=== PATIENT | female | born 1970 | race Caucasian/White ===

== ENCOUNTER 2017-01-23 07:33 | Emergency (ER) | payer BC ==
[~2017-01-23] VITALS: Ht 162.6 cm; Wt 62.0 kg
[~2017-01-23 07:33] MED LIST: IBUP-1542 PO; TRAM50TA2 PO
[2017-01-23 07:37] VITALS: Ht 162.6 cm; Wt 62.0 kg
[2017-01-23] MEDS ORDERED: IBUPROFEN 600 MG TAB PO ONE (08:00)
--- NOTE | 2017-01-23 08:58 | ERD ---
ER Documentation Chief Complaint Chief Complaint LT 4TH FINGER PAIN AND SWELLING S/P RING GETTING STUCK WHEN FALLING HPI This is a 38-year-old female presenting to emergency department for injury and pain to left fourth digit. Patient states while at work she was reaching overhead to ceiling when her ring got caught and she suffered abrasion to left ring finger. Patient now states she is having swelling and unable to take her ring off. Patient is having some numbness and tingling to left fourth digit. Patient is able to move all fingers on left hand. ROS All systems reviewed and are negative except as per history of present illness. Medications Home Meds Active Scripts Tramadol HCl (Tramadol HCl) 50 Mg Tablet, 50 MG PO Q4 Y for PAIN, #5 TAB Prov:TAYLOR GAYLE NP 01/23/17 Ibuprofen* (Motrin*) 400 Mg Tab, 400 MG PO Q6, #30 TAB Prov:TAYLOR GAYLE NP 01/23/17 Tramadol HCl (Tramadol HCl) 50 Mg Tab, 50 MG PO Q4 Y for PAIN, #20 TAB Prov:JAMES FONSECA MD 12/28/14 Ibuprofen* (Motrin*) 600 Mg Tab, 600 MG PO Q6, #30 TAB Prov:JAMES FONSECA MD 12/28/14 Allergies Allergies: Coded Allergies: No Known Allergy (Unverified , 12/28/14) PMhx/Soc Medical and Surgical Hx: pt denies Medical Hx, pt denies Surgical Hx Hx Alcohol Use: No Hx Substance Use: No Hx Tobacco Use: No Smoking Status: Never smoker Physical Exam Vitals Vital Signs Date Time Temp Pulse Resp B/P Pulse Ox O2 Delivery O2 Flow Rate FiO2 01/23/17 07:37 98.1 88 17 148/83 98 Physical Exam Const: No acute distress, alert Head: Atraumatic Eyes: Normal Conjunctiva ENT: Normal External Ears, Nose and Mouth. Neck: Full range of motion..~ No meningismus. Resp: Clear to auscultation bilaterally. Cardio: Regular rate and rhythm, no murmurs Abd: Soft, non tender, non distended. Normal bowel sounds Skin: swelling and ecchymosis to left 4th digit distally. abrasion and dried blood surrounding ring. pain to palpation of distal left finger. Back: No midline or flank tenderness Ext: No cyanosis, or edema Neur: Awake and alert Psych: Normal Mood and Affect Results 24 hrs Current Medications Medications (Trade) Dose Ordered Sig/Alecia Route PRN Reason Start Time Stop Time Status Last Admin Dose Admin Ibuprofen (Motrin) 600 mg ONCE ONCE PO 01/23/17 08:00 01/23/17 08:01 DC 01/23/17 08:06 Procedures/MDM MDM: This is a 38-year-old female presenting to emergency department for injury to left fourth digit and unable to remove ring. Ring removed per temporary staff accountant using ring cutter. Upon reassessment, patient is able to move 4th digit to left hand without difficulty. Now, denies numbness or tingling. Sensation fully intact. Capillary refill less than 3 seconds. X-ray left fourth digit reviewed by radiologist as small superficial FB. no fracture. Consulted Dr. Maravilla regarding this patient and we agree that patient is appropriate for outpatient management. Discussed findings with patient. Patient verbalized understanding. Low suspicion for acute dislocation or fracture. Patient is appropriate for outpatient management and instructed to follow-up with primary care provider in the next 2-3 days for reassessment and additional management. CD imaged provided for patient. Return to ED for any high fever, chest pain, difficulty breathing, shortness breath, wheezing, vomiting, diarrhea , abdominal pain or any new or worsening symptoms. Patient verbalizes understanding. All questions answered at discharge. Disclaimer: Inadvertent spelling and grammatical errors are likely due to EHR/ dictation software use and do not reflect on the overall quality of patient care. Also, please note that the electronic time recorded on this note does not necessarily reflect the actual time of the patient encounter Departure Diagnosis: Primary Impression: Finger injury Encounter type: initial encounter Laterality: left Qualified Code: S69.92XA - Injury of finger of left hand, initial encounter Condition: Stable TAYLOR GAYLE NP Jan 23, 2017 08:58
[2017-01-23] MEDS ORDERED: IBUP400T22 PO (09:23)
[2017-01-23] MEDS ORDERED: TRAM50TA2 PO (09:34)
--- NOTE | 2017-01-23 15:10 | RADRPT ---
PROCEDURE: XR Finger. CLINICAL INDICATION: Trauma. Left fourth finger pain. TECHNIQUE: Three views. Frontal, lateral, and oblique. COMPARISON: None available FINDINGS: There is no fracture or dislocation. There is soft tissue swelling overlying the fourth finger proximal interphalangeal joint. Articular surfaces are intact. There is no lytic or blastic lesion. There is a punctate superficial foreign body in the soft tissues of the fourth finger proximally med ially. There is no other radiopaque foreign body. IMPRESSION: 1. No bone abnormality. 2. Soft tissue swelling overlying the fourth finger proximal interphalangeal joint. 3. Punctate superficial foreign body in the soft tissues proximally medially. 4. Otherwise unremarkable study. RPTAT: QQ .Jatin Linda MD, MD Date Time Electronically viewed and signed by .Jatin Linda MD, on 01/23/2017 15:10 .R/
== END 2017-01-23 10:43 | disposition home or self-care (01) ==
LOC: FTE 07:33
DX: S60.415A Abrasion of left ring finger, initial encounter (principal); W23.1XXA Caught, crushed, jammed, or pinched between stationary objects, initial encounter; Y92.89 Other specified places as the place of occurrence of the external cause
CPT/HCPCS: 73140